=== PATIENT | female | born 1975 | race Caucasian/White ===

== ENCOUNTER 2017-10-23 07:59 | Day surgery (SDC) | payer MEDICAID ==
[2017-10-17 12:22] LABS: BASOPHILS % (AUTO) 0.3 % (0-1); EOSINOPHILS # (AUTO) 0.1 X10'3 (0-0.9); EOSINOPHILS % (AUTO) 1.9 % (0-6); LYMPHOCYTES # (AUTO) 2.7 X10'3 (1.1-4.8); LYMPHOCYTES % (AUTO) 48.5 % (21-51); MEAN CORPUSCULAR HEMOGLOBIN 30.7 PG (27.0-31.0); MEAN CORPUSCULAR HGB CONC 34.7 % (33.0-36.5); MEAN CORPUSCULAR VOLUME 88.4 FL (78-98); MEAN PLATELET VOLUME 9.2 FL (7.4-10.4); MONOCYTES # (AUTO) 0.4 X10'3 (0-0.9); MONOCYTES % (AUTO) 7.7 % (2-12); NEUTROPHILS # (AUTO) 2.3 X10'3 (1.8-7.7); NEUTROPHILS % (AUTO) 41.6 % (42-75); PRE OP HEMATOCRIT 40.8 % (35.0-45.0); PRE OP HEMOGLOBIN 14.2 g/dL (12.0-16.0); PRE OP PLATELET COUNT 184 X10'3 (140-440); RED BLOOD COUNT 4.61 X10'6 (4.20-5.60); RED CELL DISTRIBUTION WIDTH 12.6 % (11.5-14.5)
[2017-10-17 12:37] LABS: ALBUMIN 3.8 G/DL (3.4-5.0); ALKALINE PHOSPHATASE 35 IU/L (46-116); BLOOD UREA NITROGEN 15 MG/DL (7-18); BUN/CREATININE RATIO 21.4 (6.6-38.0); CHLORIDE 103 MMOL/L (99-107); PRE OP ALT 56 U/L (30-65); PRE OP ANION GAP 11 (8-16); PRE OP BILIRUB, TOTAL 0.6 MG/DL (0.0-1.0); PRE OP GLUCOSE 113 MG/DL (70-104); PRE OP SODIUM 140 MMOL/L (135-145); TOTAL CARBON DIOXIDE 26.3 MMOL/L (24-32); TOTAL PROTEIN 7.6 G/DL (6.4-8.2); eGFR > 90 ML/MIN
[2017-10-17 12:39] LABS: PRE OP AST 57 U/L (10-37); PRE OP POTASSIUM 4.4 MMOL/L (3.4-5.1)
[~2017-10-23] VITALS: Ht 157.5 cm; Wt 110.3 kg
[2017-10-23] VITALS (8 sets, daily range): BP systolic 106–138; BP diastolic 45–79
[~2017-10-23 07:59] MED LIST: ALBU8.5H8 INH; DOCUMENT DATE & TIME OF BETA-BLOCKER PO ONE; LEVO25TA7 PO; METH-603 PO; PROP10TA10 PO; VANCOMYCIN INJ 1000 MG in NORMAL SALINE 250ml IV.SOLN IV ONE; [UNRECOGNIZED DRUG - CODE] PO; albuterol 2.5 MG/3 ML nebule NEB ONE; famotidine 20mg tablet PO ONE; levoFLOXACIN-Levaquin 500mg/D5 100 ML IV ONE; ringers solution, lacted 1,000 ML IV SCH
[2017-10-23] MEDS ORDERED: ondansetron/PF 4mg/2ml inj IV PRN (08:00)
[2017-10-23] MEDS ORDERED: LIDOcaine 1%/PF (10mg/ml) 5ml vial ONE (08:00)
[2017-10-23] MEDS ORDERED: meperidine/PF 50mg/ml syringe IV PRN ×3 (08:00)
[2017-10-23] MEDS ORDERED: ketorolac trometh. 30mg/ml inj. ONE (08:00)
[2017-10-23] MEDS ORDERED: proCHLORperazine 10 MG/2 ml inj IV PRN (08:00)
[2017-10-23] MEDS ORDERED: dexamethasone sod phosphate 4mg/ml inj. ONE (08:00)
[2017-10-23] MEDS ORDERED: sevoflurane 250ml liquid IH ONE (08:00)
[2017-10-23] MEDS ORDERED: morphine 4 MG/ML inj SYRINge IV PRN ×2 (08:00)
[2017-10-23] MEDS ORDERED: BUPIVAcaine/PF 2.5 mg/ml (0.25%) 30ml vial ONE (08:44)
[2017-10-23] MEDS ORDERED: triamcinolone acetonide 40mg/ml inj ONE (08:44)
[2017-10-23] MEDS ORDERED: midazolam 2 mg/2 ml injection ONE (09:05)
[2017-10-23] MEDS ORDERED: fentaNYL /PF 50mcg/ml 5ml ampule ONE (09:07)
[2017-10-23] MEDS ORDERED: propofol inj 20 ML IV ONE (09:07)
[2017-10-23] MEDS ORDERED: ondansetron/PF 4mg/2ml inj ONE (09:14)
== END 2017-10-23 12:02 | disposition home or self-care (01) ==
LOC: PAS 07:59
PROVIDERS: ATTEND Orthopaedic Surgery
DX: S83.281A Other tear of lateral meniscus, current injury, right knee, initial encounter (principal); S83.282A Other tear of lateral meniscus, current injury, left knee, initial encounter; S83.512A Sprain of anterior cruciate ligament of left knee, initial encounter; S83.511A Sprain of anterior cruciate ligament of right knee, initial encounter; M94.261 Chondromalacia, right knee; M94.262 Chondromalacia, left knee; G89.4 Chronic pain syndrome; F41.9 Anxiety disorder, unspecified; I10 Essential (primary) hypertension; K21.9 Gastro-esophageal reflux disease without esophagitis; E03.9 Hypothyroidism, unspecified; E66.01 Morbid (severe) obesity due to excess calories; Z68.41 Body mass index [BMI] 40.0-44.9, adult; F32.89 Other specified depressive episodes; M17.12 Unilateral primary osteoarthritis, left knee; M17.11 Unilateral primary osteoarthritis, right knee; M16.12 Unilateral primary osteoarthritis, left hip; M16.11 Unilateral primary osteoarthritis, right hip; J45.909 Unspecified asthma, uncomplicated; Z95.0 Presence of cardiac pacemaker; X58.XXXA Exposure to other specified factors, initial encounter; Y93.89 Activity, other specified; Y92.89 Other specified places as the place of occurrence of the external cause; Y99.8 Other external cause status; Z79.899 Other long term (current) drug therapy; Z88.0 Allergy status to penicillin; Z88.5 Allergy status to narcotic agent; Z98.890 Other specified postprocedural states; Z98.51 Tubal ligation status; Z82.49 Family history of ischemic heart disease and other diseases of the circulatory system; Z80.9 Family history of malignant neoplasm, unspecified
CPT/HCPCS: 29873; 29879; 29880; 36415; 80053; 85025; 93005; 94640; 94760; A6449; J1100; J1885; J1956; J2001; J2250; J2405; J2704; J3010; J3301; J3370; J3490; J7030; J7120; A6250; A7000